=== PATIENT | female | born 1970 | race Caucasian/White ===

== ENCOUNTER 2021-02-01 07:34 | Day surgery (SDC) | payer BC, OTHER ==
[~2021-02-01] VITALS: Ht 172.7 cm; Wt 73.9 kg
[~2021-02-01 07:34] MED LIST: LEVO137T2 PO; LIDOCAINE 1% MDV 20ML VIAL SQ PRN; LR 1,000 ML IV ONE; ceFAZolin SOD 2 GM in IV 1 EA IV ONE
[2021-02-01] MEDS ORDERED: BUPIVACAINE HCL 0.5% 30 ML VIAL As Ordered ONE (07:51)
[2021-02-01] MEDS ORDERED: LIDOCAINE 1% SDV 30ML VIAL As Ordered ONE (07:52)
[2021-02-01] MEDS ORDERED: dexameTHASONE 4 MG/ML 1ML VIAL (J1100 PER 1MG) As Ordered ONE (07:52)
[2021-02-01] MEDS ORDERED: LIDOCAINE 2% 100MG/5ML SDV (FOR ANES.) As Ordered ONE (08:42)
[2021-02-01] MEDS ORDERED: propofoL 200 MG/20 ML VIAL As Ordered ONE ×3 (08:42→10:41)
[2021-02-01] MEDS ORDERED: fentaNYL 100 MCG/2 ML INJECTION (J3010) As Ordered ONE (08:43)
[2021-02-01] MEDS ORDERED: MIDAZOLAM INJ 2MG/2ML VIAL (J2250 PER 1MG) As Ordered ONE (08:44)
[2021-02-01] MEDS ORDERED: KETOROLAC 60MG 2ML VIAL As Ordered ONE (10:31)
[2021-02-01] MEDS ORDERED: HYDR-3713 PO (11:03)
[2021-02-01] MEDS ORDERED: ONDA-83 PO (11:10)
[2021-02-01 11:29] VITALS: BP 126/71
--- NOTE | 2021-02-01 11:40 | RO ---
OPERATIVE NOTE DATE OF OPERATION: 02/01/2021 PREOPERATIVE DIAGNOSIS: Left foot bunion, hallux valgus and second hammertoe deformity. POSTOPERATIVE DIAGNOSIS: Left foot bunion, hallux valgus and second hammertoe deformity. PROCEDURES: Left foot bunionectomy with first metatarsal osteotomy, Ramos osteotomy, and second hammertoe correction. SURGEON: Lior Whittaker DPM. KARDEX CLERK: None. ANESTHESIA: Monitored anesthesia care with preop injection of 20 mL of 1:1 mixture of 1% lidocaine plain and 0.5% marcaine plain. ESTIMATED BLOOD LOSS: Minimal. MATERIALS: Arthrex 3.5 headless compression screw, Arthrex DynaNite staple, 3.0 and 4.0 Vicryl, 4-0 nylon, and a 4.5 K-wire. COMPLICATIONS: None. CONDITION: Stable. INDICATIONS FOR PROCEDURE: Ofelia Montejo is a 50-year-old female who presents to [facility] with complaint of painful bunion and second hammertoe and presents today for surgical correction. The patient site and side were identified and marked in the preoperative holding area. Consent was reviewed and obtained. Risks, complications, and alternatives to the procedure were explained to the patient in detail and all questions were answered. DESCRIPTION OF PROCEDURE: The patient was brought to the operating room and placed on the operating room table in the supine position. Monitored anesthesia care was delivered by the anesthesia team. Preop injection of 20 mL of 1:1 mixture of 1% lidocaine plain and 0.5% marcaine plain was injected to the left foot. The foot was prepped and draped in the usual sterile fashion. The tourniquet was applied to the left ankle and inflated to 250 mmHg. Attention was first paid to the bunion. A dorsal incision was drawn and carried through with a #15 blade over the first metatarsophalangeal joint. Dissection was carried down to the metatarsophalangeal joint and capsule was identified. T-capsulotomy was performed exposing the metatarsal head. Following this lateral release was performed releasing the adductor tendon, sesamoidal ligament, and lateral capsule. McGlamry elevator was used to release the plantar structures. The medial eminence was resected with a sagittal saw and an osteotomy was performed transposing the metatarsal head laterally. This was fixed with an Arthrex 3.5 headless compression screw. Remaining bone ledge was resected with a sagittal saw and smoothed with a rasp. The site was irrigated with normal saline. Attention was then paid to the proximal phalanx. A wedge of the medial cortex was resected with a sagittal saw and fixed with an Arthrex DynaNite staple effectively placing the toe in a more medial rectus position. The site was irrigated with normal saline. A capsular repair was performed with 3-0 Vicryl, subcutaneous closure with 4-0 Vicryl, and skin closure with 4-0 nylon. Next, attention was paid the second toe. A dorsal incision was made over the proximal interphalangeal joint and carried through with a #15 blade. Dissection was carried down to the extensor tendon and a transverse tenotomy was performed over the proximal phalanx. Over the proximal interphalangeal joint a joint capsulotomy was performed and the collateral ligaments were released exposing the proximal phalanx head. The cartilage from the head of the proximal phalanx and the cartilage from the base of the middle phalanx were resected with a sagittal saw and the toe was fixed with a 4.5 K-wire. The wire was bent and cut distally. The extensor tendon was repaired with 3-0 Vicryl and the skin was repaired with 4-0 nylon. One mL of Decadron was injected. Sterile dressings were applied. The tourniquet was deflated. The patient was brought to the PACU with vital signs stable and neurovascular status intact. She will be partial weightbearing. She will follow-up in the office in two days.
== END 2021-02-01 11:40 | disposition home or self-care (01) ==
LOC: M SDC 07:34 → EDUNIT# 10:10 → M SDC 11:40
PROVIDERS: ATTEND Podiatrist Foot & Ankle Surgery
DX: M21.612 Bunion of left foot (principal); M20.12 Hallux valgus (acquired), left foot; M20.42 Other hammer toe(s) (acquired), left foot; E03.9 Hypothyroidism, unspecified; Z79.899 Other long term (current) drug therapy
CPT/HCPCS: 28285; 28299; 88300; C1713; J0690; J1100; J1885; J2250; J3010